=== PATIENT | female | born 1950 ===

== ENCOUNTER 2019-11-02 07:59 | Day surgery (SDC) | payer MEDICARE, BC ==
[~2019-11-02 07:59] MED LIST: Lactated Ringers 1,000 ML IV SCH; Lidocaine 1%/Sod Bicarbonate in NS 8.4% 1 ML Syringe IDERM PRN; Sodium Chloride 0.9% 10 ML Syringe FLUSH PRN
[2019-11-02] MEDS ORDERED: Propofol 200 MG/20 ML SDV ONE (08:11)
[2019-11-02] MEDS ORDERED: Lidocaine 1% 4 ML ONE (08:12)
[2019-11-02] MEDS ORDERED: fentaNYL 100 MCG/2 ML SDV ONE (08:12)
--- NOTE | 2019-11-02 08:46 | PCM.PREANE ---
Preanesthetic Assessment - Procedure Proposed Procedure: EGD Diagnostic - Anesthesia/Transfusion/Family Hx Anesthesia History: Prior Anesthesia Without Reaction Family History of Anesthesia Reaction: No - Review of Systems General: No Symptoms Pulmonary: No Symptoms Cardiovascular: No Symptoms Gastrointestinal: Difficulty Swallowing Neurological: No Symptoms Other: Reports: Diabetes (Type II Blood Glucose 127 mg/dl), Thyroid Problems - Physical Assessment NPO Status Date: 11/02/19 NPO Status Time: 22:00 Vital Signs: 160/57 59 96% 16 97.1F Weight: 62 kg ASA Class: 2 Mental Status: Alert & Oriented x3 Airway Class: Mallampati = 2 Dentition: Reports: Broken Tooth/Teeth, Missing Tooth/Teeth (States her teeth are rotten. They have significant decay at the gumline. Some are loose. ) Thyro-Mental Finger Breadths: 2 Mouth Opening Finger Breadths: 3 ROM/Head Extension: Full Lungs: Clear to Auscultation, Normal Respiratory Effort Cardiovascular: Regular Rate, Regular Rhythm, Murmurs - Lab Values: Laboratory Last Values POC Glucose 127 mg/dL (80-115) H 11/02/19 08:16 - Allergies Allergies/Adverse Reactions: Allergies Allergy/AdvReac Type Severity Reaction Status Date / Time No Known Allergies Allergy Verified 10/12/19 09:26 - Anesthesia Plan Beta Kailyn: Metoprolol Med Last Dose Date: 11/02/19 Med Last Dose Time: 06:00 - Acknowledgements Anesthesia Type Planned: MAC Pt an Appropriate Candidate for the Planned Anesthesia: Yes Alternatives and Risks of Anesthesia Discussed w Pt/Guardian: Yes Pt/Guardian Understands and Agrees with Anesthesia Plan: Yes PreAnesthesia Questionnaire - CURRENT (IN HOUSE) MEDS Current Meds: Current Medications Lactated Ringer's (Ringers, Lactated) 1,000 mls @ 125 mls/hr IV ASDIRECTED CONOR Stop: 11/02/19 23:00 Lidocaine/Sodium Bicarbonate (Buffered Lidocaine 1% In Ns 8.4%) 0.25 ml IDERM ONETIME PRN PRN Reason: Prior to IV Start Stop: 11/02/19 18:00 Sodium Chloride (Saline Flush) 10 ml FLUSH ASDIRECTED PRN PRN Reason: Keep Vein Open Stop: 11/02/19 18:00 Discontinued Medications Fentanyl (Sublimaze) Confirm Administered Dose 100 mcg .ROUTE .STK-MED ONE Stop: 11/02/19 08:13 Lidocaine HCl (Xylocaine-Mpf 1%) Confirm Administered Dose 4 mls @ as directed .ROUTE .STK-MED ONE Stop: 11/02/19 08:13 Propofol (Diprivan 20 Ml) Confirm Administered Dose 400 mg .ROUTE .STK-MED ONE Stop: 11/02/19 08:12
[2019-11-02] MEDS ORDERED: Lactated Ringers 1,000 ML ONE (11:09)
--- NOTE | 2019-11-02 11:28 | PCM48HPAN ---
Post Anesthesia Note - EVALUATION WITHIN 48HRS OF ANESTHETIC Vital Signs in Normal Range: Yes Patient Participated in Evaluation: Yes Respiratory Function Stable: Yes Airway Patent: Yes Cardiovascular Function Stable: Yes Hydration Status Stable: Yes Pain Control Satisfactory: Yes Nausea and Vomiting Control Satisfactory: Yes Mental Status Recovered: Yes Vital Signs: Last Vital Signs Temp 36.2 C 11/02/19 08:05 Pulse 59 L 11/02/19 08:05 Resp 16 11/02/19 08:05 BP 160/57 H 11/02/19 08:05 Pulse Ox 96 11/02/19 08:05
--- NOTE | 2019-11-02 12:07 | PCM.PRNOTE ---
- Free Text/Narrative Note: Date: 11/02/2019 Procedure: diagnostic esophagogastroduodenoscopy Endoscopist: Miah Yost MD Findings: no gross abnormality noted. Detailed Report: The patient was taken to the endoscopy suite and placed in left lateral decubitus position. Time out was performed and monitored sedation initiated. A bite block was placed. The endoscope was inserted orally and advanced to the duodenum with ease. The second portion of the duodenum and duodenal bulb appeared normal. A sample biopsy of mucosa was obtained with forceps. The scope was withdrawn into the stomach, and the pylorus inspected. This appeared normal, a sample of antral mucosa was obtained with forceps as well. The body of the stomach appeared grossly normal. On retroflexion of the scope, the fundus appeared normal, as well as the GE junction from within the stomach. No evidence of ulceration or hiatal hernia. The scope was withdrawn into the distal esophagus. The Z line appeared normal, there was no gross evidence of reflux esophagitis. A sample biopsy of distal esophageal mucosa was obtained. No other abnormalities were noted along the length of the esophagus as the scope was withdrawn. Air was suctioned from the stomach, and the scope was completely withdrawn. The patient tolerated the procedure well. Miah Yost MD General Surgery
== END 2019-11-02 12:29 | disposition home or self-care (01) ==
LOC: JD.SDS 07:59
PROVIDERS: ATTEND Surgery
DX: K20.0 Eosinophilic esophagitis (principal); K31.89 Other diseases of stomach and duodenum; K21.9 Gastro-esophageal reflux disease without esophagitis; E11.9 Type 2 diabetes mellitus without complications; E78.5 Hyperlipidemia, unspecified; I10 Essential (primary) hypertension; E03.9 Hypothyroidism, unspecified; Z79.890 Hormone replacement therapy; Z79.899 Other long term (current) drug therapy; Z79.84 Long term (current) use of oral hypoglycemic drugs; Z98.890 Other specified postprocedural states
CPT/HCPCS: 43239; 82962; J2001; J2704; J3010; J7120; 00731